=== PATIENT | female | born 1995 | race Caucasian/White ===

== ENCOUNTER 2019-07-14 00:43 | Emergency (ER) | payer SELFPAY ==
[2019-07-14 01:07] VITALS: BP 130/82; PULSE 88; RESP 22; TEMP 36.7; O2SAT 99; BMI 33.6
--- NOTE | 2019-07-14 01:16 | DI.RAD.S_ITS ---
PROCEDURE: XR CHEST 2V INDICATIONS: cough TECHNIQUE: 2 views of the chest were acquired. COMPARISON: None. FINDINGS: Surgical changes and devices: None. Lungs and pleura: Lungs are clear. No pleural effusions or pneumothorax. Mediastinum: Mediastinal contours are normal. Heart size is normal. Bones and chest wall: No suspicious bony abnormalities. Soft tissues appear unremarkable. IMPRESSION: No acute cardiopulmonary disease process. Dictated by: Lynn Orozco MD, PhD on 07/14/2019 at 8:16 Approved by: Lynn Orozco MD, PhD on 07/14/2019 at 8:16
--- NOTE | 2019-07-14 04:14 | ED.URI ---
HPI - URI/Sore Throat General Chief Complaint: Upper Respiratory Symptoms Stated Complaint: cough asthma bad lung issues Time Seen by Provider: 07/14/19 04:14 Source: patient Mode of arrival: Ambulatory Limitations: no limitations History of Present Illness HPI Narrative: The patient has been ill for 2 weeks. With illness started she had fever, harsh cough, was very uncomfortable. She is a smoker. She has asthma. She is not wheezing. However the cough persists. She has had a headache. She denies ear pain, or sore throat. She is eating drinking well, she has no GI symptoms. Related Data Previous Rx's Medication Instructions Recorded amoxicillin 500 mg PO TID 10 Days #30 cap 07/14/19 Review of Systems Constitutional Constitutional: Denies chills, Denies fever(s) and Reports headache(s) Eyes Comments: No complaints ENT Ears, Nose, Mouth, and Throat: Denies vertigo, Denies dizziness, Reports headache(s), Denies hoarseness, Denies mouth pain, Denies neck pain, Reports sinus pressure and Denies sore throat Cardiovascular Cardiovascular: Denies chest pain, Denies lightheadedness, Denies palpitations, Denies dyspnea and Denies orthopnea Respiratory Respiratory: Reports cough, Denies dyspnea and Denies wheezing Gastrointestinal Gastrointestinal: Denies abdominal pain, Denies change in bowel habits, Denies diarrhea, Denies nausea and Denies vomiting Musculoskeletal Musculoskeletal: Denies neck pain Integumentary/Breasts Skin/Breast: Denies erythema, Denies rash and Denies wounds Neurologic Neurologic: Denies vertigo, Denies dizziness and Reports headache(s) Endocrine Endocrine: Denies palpitations Allergic/Immunologic Allergic/Immunologic: Denies wheezing Patient History Medical History (Updated 07/14/19 @ 04:28 by Jamin Gonzales MD) Asthma (Acute) Surgical History (Updated 07/14/19 @ 04:29 by Jamin Gonzales MD) No significant past surgical history (Acute) Social History Smoking Status: Current every day smoker Smoking Status: Current every day smoker tobacco type: vaping alcohol intake frequency: 0-2 drinks per day Substance Use Type: marijuana Exam Initial Vital Signs Initial Vital Signs: Vital Signs Temperature 98.0 F 07/14/19 01:07 Pulse Rate 88 07/14/19 01:07 Respiratory Rate 22 07/14/19 01:07 Blood Pressure 130/82 07/14/19 01:07 Pulse Oximetry 99 07/14/19 01:07 Const General: cooperative and well developed Nutritional Appearance: well nourished [facility] Head: normocephalic and atraumatic Ears: external ears normal and TM's normal bilaterally Nose: external nose normal and No nasal discharge Face and sinus: face symmetric and sinus tenderness (Exam consistent with tenderness over sphenoid and ethmoid sinuses) Mouth: oral mucosae normal and moist mucous membranes Teeth and gingiva: dentition normal Throat: tonsils normal and uvula midline Eyes General: appearance normal, both eyes and all related structures Eyelids: eyelids normal Conjunctivae: conjunctivae normal Sclera: sclerae normal Pupils: PERRL EOM: EOM intact bilaterally Neck Neck: normal visual inspection, trachea midline, No lymphadenopathy, No midline deformity and No JVD Lymphatic: No lymphedema Resp Effort & Inspection: normal respiratory effort and able to speak in complete sentences Auscultation: clear to auscultation bilaterally, no rales, no rhonchi and no wheezes Cardio Rate: regular rate Rhythm: regular rhythm Heart Sounds: no click, no gallops, no murmurs and no rubs Pulses: normal peripheral pulses GI Inspection: non-distended Palpation: soft, no hepatosplenomegaly, No guarding, No pulsatile mass and No tender Auscultation: normal bowel sounds Skin General: no rashes or lesions noted Course Orders Ordered: ED Orders 07/14/19 01:16 XR chest 2V Stat Vital Signs Vital signs: Vital Signs - 8 hr 07/14/19 01:07 Temperature 98.0 F Pulse Rate 88 Respiratory Rate 22 Blood Pressure 130/82 Pulse Oximetry 99 MDM - URI/Sore Throat Imaging Data Chest x-ray: My Impression: Chest x-ray is normal. Discharge Plan Departure Patient Disposition: Home Clinical Impression: Acute pansinusitis Qualifiers: Recurrence: non-recurrent Qualified Code(s): J01.40 - Acute pansinusitis, unspecified Instructions: DI for Sinusitis Activity Restrictions/Additional Instructions: Amoxicillin 3 times daily as prescribed. Use Mucinex per package instructions. I would suggest to stop smoking. Follow-up with her doctor or return here as needed. Prescriptions: New amoxicillin 500 mg capsule 500 mg PO TID 10 Days Qty: 30 RF: 0
[2019-07-14 04:25] VITALS: BP 128/81; PULSE 77; RESP 15; O2SAT 99
== END 2019-07-14 04:25 | disposition home or self-care (01) ==
PROVIDERS: Emergency Provider Emergency Medicine
DX: J01.40 Acute pansinusitis, unspecified (principal)
CPT/HCPCS: 71046; 99281; 99283